=== PATIENT | female | born 1945 | race Caucasian/White ===

== ENCOUNTER 2017-08-31 09:11 | Inpatient (IN) ==
[2017-08-31] MEDS ORDERED: methylPREDNISolone 125 MG/2 ML VIAL IVP ONE (09:19)
[2017-08-31] MEDS ORDERED: Ipratropium/Albuterol Neb 3 ML IH ONE (09:19)
--- NOTE | 2017-08-31 09:44 | Emergency Department Note ---
Disposition Clinical Impression: Acute exacerbation of chronic obstructive airways disease, NSTEMI (non-ST elevated myocardial infarction) Disposition: Admitted As Inpatient Condition: Fair Referrals: London Albright MD [Primary Care Provider] - Forms: ED Satisfaction Letter Time of Disposition: 10:56 SOB HPI - General Chief Complaint: ED Shortness of Breath/Dyspnea Stated Complaint: martha Time Seen by Provider: 08/31/17 09:14 Source: patient, EMS Nursing Notes Reviewed: Yes Vital Signs Reviewed: Yes - History of Present Illness Presents with shortness of breath per EMS and I did see the patient immediately upon arrival and also spoke with the paramedics and the patient does have a history of COPD with multiple exacerbations since December and for the last 2 days she does have intermittent shortness of breath which is worse with exertion does have associated chest tightness when the shortness of breath occurs. The chest tightness is not necessarily related to exertion. No pleuritic aspect or radiation of the chest discomfort. She does have a dry cough and also rhinorrhea but no complaint of fever. She stopped smoking 7 years ago. No pain or swelling of the lower extremities. Social history: No smoking, is here with her sister - Related Data Home Medications Medication Instructions Recorded Confirmed Albuterol Sulfate [Proair Hfa] 2 puff IH Q4H PRN 08/31/17 08/31/17 Budesonide/Formoterol 160/4.5 2 puff IH BIDR 08/31/17 08/31/17 [Symbicort 160/4.5] Calcium Carbonate [Calcium] 600 mg PO BID 08/31/17 08/31/17 Ipratropium/Albuterol Neb [Duoneb] 3 ml IH Q6HR PRN 08/31/17 08/31/17 Montelukast [Singulair] 10 mg PO HS 08/31/17 08/31/17 Multivitamin [One Daily Essential] 1 tab PO DAILY 08/31/17 08/31/17 Tiotropium [place] [Spiriva 2 puff IH DAILY 08/31/17 08/31/17 Respimat] Previous Rx's Medication Instructions Recorded traMADol [Ultram] 50 mg PO Q6H PRN #30 tablet 02/04/16 Allergies Allergy/AdvReac Type Severity Reaction Status Date / Time codeine Allergy Hives Verified 08/31/17 10:12 diphenhydramine AdvReac Itching Verified 08/31/17 10:12 [From Benadryl] hydrocodone AdvReac Itching Verified 08/31/17 10:12 Review of Systems: Constitutional: No fever Vision: No blurred vision ENT: + rhinorrhea Respiratory: + cough Allergic: No allergies : No blood in urine GI: No blood in stool Hematologic: No bruising Dermatologic: No skin rash Musculoskeletal: No pain in the extremities Neuro: No numbness of the extremities Past Medical History - Past Medical History Medical history: Reports: COPD Surgical history: Reports: hysterectomy, orthopedic, other Psychiatric history: Reports: no psych history DIP PAINTER history: Reports: no DIP PAINTER history - Social History Smoking Status: Former smoker Smokeless Tobacco Status: Yes Alcohol use: Reports: none Drug use: Reports: none Physical Exam CONSTITUTIONAL: Well-appearing; well-nourished; A&O X 3, in no apparent distress HEAD: Normocephalic; atraumatic EYES: PERRL, no scleral icterus NOSE: The nose is normal in appearance without rhinorrhea NECK: No JVD or distended neck veins RESP: Normal chest excursion with respiration; breath sounds with bilateral wheezing moderate to severe, symmetric CARD: Regular rhythm, without murmurs, rub or gallop ABD: Non-distended; non-tender, soft, without rigidity, rebound or guarding,no pulsatile mass CHEST: + pain with palpation, normal appearance SKIN: Normal for age and race; warm and dry without diaphoresis ; no apparent lesions EXTREMITIES: Pulses are 2 plus and equal times 4 extremities, no peripheral edema or calf muscle pain - General General appearance: alert, in no apparent distress Course Vital Signs Temperature 98.1 F 08/31/17 09:13 Pulse Rate 98 08/31/17 09:13 Respiratory Rate 20 08/31/17 09:13 Blood Pressure 141/92 08/31/17 09:13 O2 Sat by Pulse Oximetry 93 08/31/17 09:13 Temperature 98.1 F 08/31/17 09:13 Pulse Rate 98 08/31/17 09:13 Respiratory Rate 20 08/31/17 09:13 Blood Pressure 141/92 08/31/17 09:13 O2 Sat by Pulse Oximetry 94 08/31/17 09:13 Oxygen Delivery Oxygen Delivery Nasal Cannula Shortness of Breath/Dyspnea - MDM Narrative Medical decision making narrative: Patient symptoms consistent with COPD exacerbation and she will receive IV Solu- Medrol, DuoNeb, antibiotics, labs and chest x-ray are pending. I do not suspect pulmonary embolism or congestive heart failure 0945 I did review the chest x-ray without acute abnormality. The patient has not recently been in a health care facility. Is also started on antibiotics Rocephin and Zithromax. I did speak with the hospitalist who accepts the patient for admission. Troponin is minimally elevated at 0.04 1056 - Lab Data Result diagrams: 08/31/17 09:31 08/31/17 09:31 Lab Results 08/31/17 08/31/17 08/31/17 Range/Units 09:31 09:31 09:31 WBC 7.4 (4.3-11.1) K/mcL RBC 4.15 (3.82-4.97) M/mcL Hgb 13.2 (11.5-15.4) g/dL Hct 39.2 (35.3-44.9) % MCV 94.5 (83.0-100.0) fL MCH 31.8 (28.0-33.3) pg MCHC 33.7 (31.6-35.5) g/dL RDW 13.7 (11.5-14.5) % Plt Count 258 (140-400) K/mcL MPV 11.1 (9.4-12.4) fL Immature Gran % 0.3 (0-4) % Seg Neutrophils % 49.1 % Lymphocytes % 33.6 % Monocytes % 6.0 % Eosinophils % 10.5 % Basophils % 0.5 % Neutrophils # 3.6 (1.6-8.9) K/mcL Lymphocytes # 2.5 (0.6-4.6) K/mcL Monocytes # 0.4 (0.0-1.3) K/mcL Eosinophils # 0.8 H (0.0-0.6) K/mcL Basophils # 0.0 (0.0-0.2) K/mcL Immature Plt Fraction 5.8 (1.1-6.1) % Sodium 142 (136-145) mEq/L Potassium 4.0 (3.5-4.5) mEq/L Chloride 108 (98-109) mEq/L Carbon Dioxide 24 (19-29) mEq/L BUN 13 (7-20) mg/dL Creatinine 0.94 (0.57-1.11) mg/dL Est GFR ( Amer) > 60 (> 60) Est GFR (Non-Af Amer) 59 L (> 60) BUN/Creatinine Ratio 14 (6-26) Glucose 111 H (70-99) mg/dL Calculated Osmolality 295 (280-300) Calcium 9.4 (8.6-10.8) mg/dL Troponin I 0.04 H* (0-0.03) ng/mL
[2017-08-31 09:48] LABS: Basophils % 0.5 %; Eosinophils # 0.8 K/mcL (0.0-0.6); Eosinophils % 10.5 %; Hematocrit 39.2 % (35.3-44.9); Hemoglobin 13.2 g/dL (11.5-15.4); Immature Granulocytes % 0.3 % (0-4); Immature Platelets 5.8 % (1.1-6.1); Lymphocytes # 2.5 K/mcL (0.6-4.6); Lymphocytes % 33.6 %; Mean Corpuscular HGB Conc 33.7 g/dL (31.6-35.5); Mean Corpuscular Hemoglobin 31.8 pg (28.0-33.3); Mean Corpuscular Volume 94.5 fL (83.0-100.0); Mean Platelet Volume 11.1 fL (9.4-12.4); Monocytes # 0.4 K/mcL (0.0-1.3); Neutrophils # 3.6 K/mcL (1.6-8.9); Platelet Count 258 K/mcL (140-400); Red Blood Count 4.15 M/mcL (3.82-4.97); Red Cell Distribution Width 13.7 % (11.5-14.5); Segmented Neutrophils % 49.1 %
[2017-08-31 10:02] LABS: BUN/Creatinine Ratio 14 (6-26); Blood Urea Nitrogen 13 mg/dL (7-20); Calcium 9.4 mg/dL (8.6-10.8); Carbon Dioxide 24 mEq/L (19-29); Chloride 108 mEq/L (98-109); Glucose 111 mg/dL (70-99); Osmolality,Calculated 295 (280-300); Sodium 142 mEq/L (136-145); eGFR For African Americans > 60 (> 60); eGFR For Non-African Americans 59 (> 60)
[2017-08-31] MEDS ORDERED: Azithromycin 500 MG in D5% in Water 250 ML IVPB ONE (10:55)
[2017-08-31] MEDS ORDERED: Naloxone 0.4 MG/ML INJ IVP PRN (11:35)
[2017-08-31] MEDS ORDERED: Ondansetron 4 MG/2 ML VIAL IVP PRN (11:35)
[2017-08-31] MEDS ORDERED: Acetaminophen 325 MG TABLET PO PRN (11:35)
--- NOTE | 2017-08-31 11:53 | Internal Med History&Physical ---
<AleciapraveenBeto ivey - Last Filed: 08/31/17 12:17> Date of Encounter: 08/31/17 Time of Encounter: 10:30 Assessment and Plan (1) Acute exacerbation of chronic obstructive airways disease Current visit: Yes Status: Acute Acute exacerbation of COPD. Pt. states she has been SOB since December with episodes of bronchitis x4. Pt. states she was placed on Z-packs which did not work. States she was in the shower this morning and couldn't breathe. Was placed on azithromycin and ceftriaxone in ED. Will discontinue azithromycin since pt. failed OP tx x4. Will continue IVPB ceftriaxone 1,000 daily for infection coverage. Pt. received 125 mg methylprednisolone in ED. Will continue steroids with prednisone by mouth 60 mg daily. DuoNebs every 4 scheduled. Supplemental O2 w/titration and SpO2 monitoring. Continuous cardiac telemetry d/ t tachycardia and elevated troponin. Pt. and f/u labs to be monitored. Pt. high risk for respiratory distress and further morbidity based on current sx, hx of failed tx, and risk factors. Inpatient. (2) Dizziness Current visit: Yes Status: Acute Acute dizziness d/t SOB/dyspnea. Falls/safety precautions. PT/OT consults ordered to assess pt. for ambulation needs/safety. (3) Elevated troponin Current visit: Yes Status: Acute Initial troponin of 0.04 on admission most likely stress-related d/t current tachycardia brought on by hypoxia and SOB. Will trend x2. Echocardiogram ordered. Continuous cardiac telemetry. (4) Hyperglycemia Current visit: Yes Status: Acute Acute hyperglycemia w/BG of 111 on admission. Pt. denies previous hx of diabetes. BG checks Q6. A1c in a.m. labs. Will administer low-dose correction sliding scale insulin if necessary. (5) DVT prophylaxis Current visit: Yes Status: Acute Heparin 5,000 units SQ Q8 for DVT prophylaxis. Internal Medicine - H&P: HPI Chief complaint: SOB/Dyspnea/Cough Admitted From: Emergency Dept Plans for Post Hospital Care: Home History of present illness: Ms. Rowland is a 72 year old female with medical hx of COPD presents from the ED with chief complaint of shortness of breath, dyspnea, dizziness, and cough that worsened this morning to the point where she states she couldn't breathe. States she has had difficulty breathing since December with bronchitis 4 without resolve. She states she is a former smoker quitting 7 years ago, but smoked 1 pack per day. Patient denies recent illness, fever, chills, nausea, vomiting, chest pain, palpitations, abdominal pain, diarrhea, constipation, headache, numbness, tingling, changes in vision, unusual bleeding, pre-syncope, or syncope. Past Med Surg Social Fam HX - Past Medical History Source: patient, old records reviewed, obtained from family Medical history: COPD Psychiatric history: no psych history - Past Surgical History Surgical History: hysterectomy (Total), orthopedic, other (Rt. shoulder) - Social History Smoking Status: Former smoker Packs per day: 1 PPD - Reports quitting 7 years ago Smokeless Tobacco Status: Yes Alcohol use: none Drug use: none Current living situation: Home, With Family Activity Level: Independent ambulation Recent Out of Country Travel Within the Last 8 Weeks: No Exposure or Possible Exposure to Illness During Travel: No - Family History Mother Race: Family Member Ethnicity: Non- Living Status: Age at : 72 Cause of : Ovarian cancer Hx Family Cancer: Yes (Ovarian cancer) Father Race: Family Member Ethnicity: Non- Living Status: Age at : 63 Cause of : Lung cancer w/mets Hx Family Cancer: Yes (Lung cancer w/mets) Brother Race: Family Member Ethnicity: Non- Living Status: Age at : 55 Cause of : Lung cancer Hx Family Cancer: Yes (Lung) Hx Family Endocrine Disorder: Yes (DM) Sister Race: Family Member Ethnicity: Non- Living Status: Age at : 50 Cause of : Ovarian cancer Hx Family Cancer: Yes (Ovarian) Internal Medicine - H&P: Meds traMADol [Ultram] 50 mg PO Q6H PRN #30 tablet 02/04/16 [Rx] Albuterol Sulfate [Proair Hfa] 2 puff IH Q4H PRN 08/31/17 [History] Budesonide/Formoterol 160/4.5 [Symbicort 160/4.5] 2 puff IH BIDR 08/31/17 [ History] Calcium Carbonate [Calcium] 600 mg PO BID 08/31/17 [History] Ipratropium/Albuterol Neb [Duoneb] 3 ml IH Q6HR PRN 08/31/17 [History] Montelukast [Singulair] 10 mg PO HS 08/31/17 [History] Multivitamin [One Daily Essential] 1 tab PO DAILY 08/31/17 [History] Tiotropium [place] [Spiriva Respimat] 2 puff IH DAILY 08/31/17 [History] 3 Allergy/AdvReac Type Severity Reaction Status Date / Time codeine Allergy Hives Verified 08/31/17 10:12 diphenhydramine AdvReac Itching Verified 08/31/17 10:12 [From Benadryl] hydrocodone AdvReac Itching Verified 08/31/17 10:12 All Systems PM: A 10-system review of systems was performed and is negative for pertinent findings except as documented above in the HPI. - Constitutional Constitutional: no chills, no fever(s), no night sweats - EENT Eyes: no change in vision, no discharge, no pain, no photophobia Ears: no ear discharge, no ear pain, no tinnitus Nose, mouth and throat: no dysphagia, no nasal discharge, no neck pain, no sore throat - Breasts Breasts: as per HPI - Cardiovascular Cardiovascular ROS IM: as per HPI, dyspnea, dyspnea on exertion, no chest pain, no diaphoresis, no lightheadedness, no palpitations, no syncope - Respiratory Respiratory: as per HPI, cough, dyspnea, dyspnea on exertion, chest congestion, no wheezing, no excessive phlegm production - Gastrointestinal Gastrointestinal: no abdominal pain, no diarrhea, no hematemesis, no hematochezia, no melena, no nausea, no vomiting - Genitourinary Genitourinary: no change in urinary stream, no dysuria, no flank pain, no hematuria Menstruation: as per HPI, post hysterectomy - Musculoskeletal Musculoskeletal ROS IM: no numbness, no tingling - Integumentary Integumentary IM: no rash, no unusual bruising - Neurological Neurological ROS: no confusion, no convulsions, no focal weakness, no numbness, no tingling, no tremor(s) - Psychiatric Psychiatric: as per HPI - Endocrine Endocrine IM: as per HPI - Hematologic/Lymphatic Hematologic/Lymphatic: no easy bruising - Allergic/Immunologic Allergic/Immunologic: as per HPI - Constitutional Vitals: Temp Pulse Resp BP Pulse Ox 98.1 F 76 16 115/73 92 08/31/17 09:13 08/31/17 11:34 08/31/17 11:34 08/31/17 11:34 08/31/17 11:34 General appearance: Present: cooperative, mild distress (Coughing/respiratory distress), A&O X 3, pleasant, answers questions appropriately - Head Head exam: Present: atraumatic, normal inspection, normocephalic - Eye Eye exam: Present: PERRL, conjuntiva pink, sclera anicteric Pupils: Present: PERRL - ENT ENT exam: Present: normal exam, normal external ear exam - Neck Neck exam general surgery: Present: normal inspection, supple, trachea midline. Absent: lymphadenopathy - Respiratory Respiratory exam: Present: accessory muscle use, decreased breath sounds, rhonchi. Absent: rales, wheezes - Cardiovascular Cardiovascular exam: Present: +S1, +S2, tachycardia. Absent: diastolic murmur, gallop, rubs, systolic murmur - GI/Abdominal GI/Abdominal exam: Present: normal bowel sounds, soft, no peritoneal signs. Absent: distended, tenderness - Rectal Rectal exam: Present: deferred - Additional comments: exam deferred. - Extremities Exam Extremities exam: Present: warm, radial pulses palpable and symmetrical. Absent : calf tenderness, cyanotic, pedal edema - Back Exam Back exam: Present: normal inspection - Neurological Exam Neurological exam: Present: CN II-XII intact, oriented X3, no focal deficits. Absent: pronater drift, facial droop, speech deficit - Psychiatric Psychiatric exam: Present: normal affect, normal mood - Skin Skin exam: Present: dry, intact Internal Med - H&P Results - Labs CBC & Chem 7: 08/31/17 09:31 08/31/17 09:31 - EKG Data EKG shows normal: sinus rhythm Rate: tachycardia - EKG Data Prior EKG available for review: no EKG comments: 08/31/17 12:01 EKG dated 08/31/17 shows sinus tachycardia and abnormal rhythm ECG. <Cele Ortiz - Last Filed: 08/31/17 19:13> Date of Encounter: 08/31/17 Internal Medicine - H&P: HPI History of present illness: Ms. Rowland is a 72 year old female All Systems PM: A 10-system review of systems was performed and is negative for pertinent findings except as documented above in the HPI. - Constitutional Vitals: Temp Pulse Resp BP Pulse Ox 98.8 F 78 17 98/65 95 08/31/17 15:09 08/31/17 15:09 08/31/17 15:17 08/31/17 15:09 08/31/17 15:17 Internal Med - H&P Results - Labs CBC & Chem 7: 08/31/17 09:31 08/31/17 09:31 Labs: Cardiac Enzymes 08/31/17 Range/Units 15:27 Troponin I 0.31 H* (0-0.03) ng/mL - Attending Attestation Patient seen and examined, agree with assessment and plan by BRAYAN Godoy. Patient with COPD exacerbation and elevated troponin. Patient complains of chest pressure only when coughing, it completely resolves when she is not coughing. Treating for COPD exacerbation and consulted cardiology for assistance - will give SQ lovenox 1mg/kg BID and check TTE, cardiology will see in AM. Will trend troponins. EKG without ischemic changes.
[2017-08-31] MEDS: traMADol 50 MG TABLET PO PRN ×2 (12:34→21:03)
[2017-08-31] MEDS ORDERED: cefTRIAXone 1,000 MG in Water for inj. (sterile) 10 ML IVP ONE (14:38)
[2017-08-31] MEDS: Ipratropium/Albuterol Neb 3 ML IH SCH ×5 (15:15→23:34)
[2017-08-31] MEDS ORDERED: *HR* Heparin 5,000 UNIT/ML VIAL SQ SCH (16:00)
[2017-08-31] MEDS ORDERED: Nitroglycerin 0.4 MG TAB.SUBL SL PRN (16:59)
[2017-08-31] MEDS ORDERED: Insulin LISPRO 300 UNITS/3 ML VIAL SQ PRN ×2 (17:24)
[2017-08-31] MEDS ORDERED: Dextrose Gel 15 GM PO PRN ×2 (17:24)
[2017-08-31] MEDS ORDERED: *HR* Dextrose 50 % in Water (Syg) 50 ML SYRINGE IVP PRN (17:24)
[2017-08-31] MEDS ORDERED: D5% in Water 1,000 ML IVC PRN (17:24)
[2017-08-31] MEDS: Benzonatate 100 MG CAPSULE PO SCH ×2 (17:41→21:03)
[2017-08-31] MEDS: *HR* Enoxaparin 60 MG/0.6 ML SYRINGE SQ SCH (19:40)
[2017-08-31] MEDS: Budesonide/Formoterol 160/4.5 MDI IH SCH (20:11)
[2017-08-31] MEDS: Insulin LISPRO 300 UNITS/3 ML VIAL SQ SCH (21:45)
[2017-09-01] MEDS: Ipratropium/Albuterol Neb 3 ML IH SCH ×6 (04:45→23:29)
[2017-09-01 05:08] LABS: Basophils % 0.1 %; Eosinophils % 0.1 %; Hematocrit 34.7 % (35.3-44.9); Immature Granulocytes % 0.3 % (0-4); Lymphocytes # 1.5 K/mcL (0.6-4.6); Lymphocytes % 16.5 %; Mean Corpuscular HGB Conc 33.1 g/dL (31.6-35.5); Mean Corpuscular Hemoglobin 31.3 pg (28.0-33.3); Mean Corpuscular Volume 94.3 fL (83.0-100.0); Mean Platelet Volume 11.3 fL (9.4-12.4); Monocytes # 0.5 K/mcL (0.0-1.3); Monocytes % 5.1 %; Platelet Count 234 K/mcL (140-400); Red Blood Count 3.68 M/mcL (3.82-4.97); Red Cell Distribution Width 13.8 % (11.5-14.5); Segmented Neutrophils % 77.9 %
[2017-09-01 05:21] LABS: Hemoglobin 11.5 g/dL (11.5-15.4)
[2017-09-01 05:26] LABS: Hemoglobin A1C 5.4 %
[2017-09-01] MEDS: *HR* Enoxaparin 60 MG/0.6 ML SYRINGE SQ SCH (05:28)
[2017-09-01 05:32] LABS: BUN/Creatinine Ratio 18 (6-26); Blood Urea Nitrogen 19 mg/dL (7-20); Carbon Dioxide 26 mEq/L (19-29); Chloride 107 mEq/L (98-109); Potassium 4.2 mEq/L (3.5-4.5); Sodium 141 mEq/L (136-145); eGFR For African Americans > 60 (> 60)
[2017-09-01 05:33] LABS: Alanine Aminotransferase 12 Units/L (0-55); Albumin 3.2 g/dL (3.5-5.0); Albumin/Globulin Ratio 1.1 (1.1-2.2); Alkaline Phosphatase 60 Units/L (38-126); Aspartate Amino Transferase 16 Units/L (5-34); Bilirubin,Total 0.2 mg/dL (0.2-1.2); Calcium 9.4 mg/dL (8.6-10.8); Chol/HDL Ratio 2.7 (0-4.9); Cholesterol 176 mg/dL (< 200); Globulin 2.9 g/dL (2.4-3.5); Glucose 111 mg/dL (70-99); HDL Cholesterol 66 mg/dL (40-59); LDL Cholesterol,Calculated 93 mg/dL (0-99); Magnesium 2.1 mg/dL (1.6-2.6); Osmolality,Calculated 295 (280-300); Phosphorous 3.9 mg/dL (2.3-4.7); Total Protein 6.1 g/dL (6.0-8.3); Triglycerides 87 mg/dL (< 150); eGFR For Non-African Americans 50 (> 60)
[2017-09-01] MEDS: Benzonatate 100 MG CAPSULE PO SCH ×3 (07:30→19:07)
[2017-09-01] MEDS: traMADol 50 MG TABLET PO PRN ×3 (07:30→23:04)
[2017-09-01] MEDS: cefTRIAXone 1,000 MG in Water for inj. (sterile) 10 ML IVP SCH (07:31)
[2017-09-01] MEDS: Budesonide/Formoterol 160/4.5 MDI IH SCH ×2 (07:39→20:16)
[2017-09-01] MEDS: Insulin LISPRO 300 UNITS/3 ML VIAL SQ SCH ×4 (08:25→21:55)
[2017-09-01] MEDS ORDERED: predniSONE 20 MG TABLET PO SCH (09:00)
--- NOTE | 2017-09-01 09:38 | Cardiology Consult Note ---
<David Murray R - Last Filed: 09/01/17 09:36> Date of Encounter: 09/01/17 Time of Encounter: 09:36 Assessment and Plan (1) Elevated troponin Current Visit: Yes Status: Acute Troponins 0.04, 0.31, 0.26 in setting of COPD exacerbation. Rhonchi and wheezes noted on exam. No ischemic EKG changes. Suspect demand ischemia secondary to COPD exacerbation, nondiagnostic for ACS. Cardiac rehab not warranted. No cardiac hx. Only risk factor for CAD is hx of tobacco abuse. On therapeutic lovenox currently. Recommend echo to evaluate structure and function. If no significant findings, anticipate sign off from cardiac standpoint. (2) Acute exacerbation of chronic obstructive airways disease Current Visit: Yes Status: Acute Management per primary team. Discussion w patient/family: The assessment and plan as outlined above was discussed with the patient and/or family members who expressed understanding and agreement. All questions were answered. Thank you for involving us in the care of your patient. Please call with any questions. I will discuss all the above with Dr. Matias and make changes as necessary. History of Present Illness Consult date: 09/01/17 Requesting physician: Cele Ortiz Consult reason: Elevated troponin Chief complaint: dyspnea History of present illness: Ms. Rowland is a 72 year old female with medical hx of COPD that presented to the ED with chief complaint of dyspnea, dizziness, and cough that worsened yesterday morning to the point that she couldn't breathe and felt like she was smothering. States she has had difficulty breathing since December with bronchitis 4 without complete resolve. She states she is a former smoker quitting 7 years ago, but smoked 1 pack per day. She denies chest krzysztof, no cardiac hx. Troponins 0.04, 0.31, 0.26 and cardiology was consulted for further recommendations. Past Med Surg Social Fam HX - Past Medical History Medical history: COPD Psychiatric history: no psych history - Past Surgical History Surgical History: hysterectomy, orthopedic, other - Social History Smoking Status: Former smoker Packs per day: 1 PPD - Reports quitting 7 years ago Smokeless Tobacco Status: Yes (electronic cigarette) Alcohol use: none Drug use: none - Family History Brother Race: Family Member Ethnicity: Non- Living Status: Age at : 55 Cause of : Lung cancer Hx Family Cancer: Yes (Lung) Hx Family Endocrine Disorder: Yes (DM) Sister Race: Family Member Ethnicity: Non- Living Status: Age at : 50 Cause of : Ovarian cancer Hx Family Cancer: Yes (Ovarian) Mother Race: Family Member Ethnicity: Non- Living Status: Age at : 72 Cause of : Ovarian cancer Hx Family Cancer: Yes (Ovarian cancer) Father Race: Family Member Ethnicity: Non- Living Status: Age at : 63 Cause of : Lung cancer w/mets Hx Family Cancer: Yes (Lung cancer w/mets) Medications and Allergies traMADol [Ultram] 50 mg PO Q6H PRN #30 tablet 02/04/16 [Rx] Albuterol Sulfate [Proair Hfa] 2 puff IH Q4H PRN 08/31/17 [History] Budesonide/Formoterol 160/4.5 [Symbicort 160/4.5] 2 puff IH BIDR 08/31/17 [ History] Calcium Carbonate [Calcium] 600 mg PO BID 08/31/17 [History] Ipratropium/Albuterol Neb [Duoneb] 3 ml IH Q6HR PRN 08/31/17 [History] Montelukast [Singulair] 10 mg PO HS 08/31/17 [History] Multivitamin [One Daily Essential] 1 tab PO DAILY 08/31/17 [History] Tiotropium Max [Spiriva Respimat] 2 puff IH DAILY 08/31/17 [History] 3 Allergy/AdvReac Type Severity Reaction Status Date / Time codeine Allergy Hives Verified 08/31/17 10:12 diphenhydramine AdvReac Itching Verified 08/31/17 10:12 [From Benadryl] hydrocodone AdvReac Itching Verified 08/31/17 10:12 All Systems Review: A 10-system review of systems was performed and is negative for pertinent findings except as documented above in the HPI. - Cardiovascular Cardiovascular: as per HPI, dyspnea at rest, dyspnea on exertion - Respiratory Respiratory: cough, dyspnea, wheezing Physical Examination Vital Signs, Last 4 Hours Temp Pulse Resp BP Pulse Ox 09/01/17 08:01 97.8 F 94 16 107/58 92 09/01/17 07:39 18 92 09/01/17 06:01 97.9 F 72 18 112/61 90 Vital Signs Temp Pulse Resp BP Pulse Ox 09/01/17 08:01 97.8 F 94 16 107/58 92 09/01/17 07:39 18 92 09/01/17 06:01 97.9 F 72 18 112/61 90 09/01/17 04:45 17 94 09/01/17 02:02 98.0 F 90 18 109/61 91 08/31/17 21:21 98.0 F 76 18 92/59 92 08/31/17 20:11 18 94 08/31/17 15:17 17 95 08/31/17 15:09 98.8 F 78 16 98/65 94 08/31/17 12:54 98.1 F 113 18 113/80 92 08/31/17 12:12 16 122/86 08/31/17 11:34 76 16 115/73 92 Intake and Output 08/31/17 09/01/17 09/01/17 23:59 07:59 15:59 Intake Total 320 / 320 120 / 120 480 / 480 Output Total 600 / 600 300 / 300 400 / 400 Balance -280 / -280 -180 / -180 80 / 80 Intake: Oral 320 / 320 120 / 120 480 / 480 Output: Urine 600 / 600 300 / 300 400 / 400 Other: Meal Dinner Breakfast Percent of Meal Consumed 90% 100% # Voids 1 Weight 53.9 kg Blood Glucose* 158 120 Patient Weight 09/01/17 23:59 Weight 53.9 kg General: Conversant, No Apparent Distress HEENT: Atraumatic, Normocephaly, Mucus Membranes Moist Neck: No JVD, Normal carotid pulses Cardiac: Reg Rate and Rhythm, Normal S1 and S2, No Murmur Lungs: Other (rhonchi and wheezes noted bilaterally) Neuro: Alert and responsive, No focal deficits noted Abdomen: Soft, Non-Tender Skin: No rashes noted on visualized skin Musculoskeletal: No Chest Wall Tenderness Extremities: No Clubbing, No Cyanosis, No Edema, Normal Pulses Results 09/01/17 04:20 09/01/17 04:20 Lab Results 08/31/17 08/31/17 09/01/17 15:27 21:36 04:20 WBC 9.0 Hgb 11.5 D Hct 34.7 L Plt Count 234 Sodium Potassium Chloride Carbon Dioxide BUN Creatinine Glucose Calcium Magnesium Total Bilirubin AST ALT Alkaline Phosphatase Troponin I 0.31 H* 0.26 H* 09/01/17 04:20 WBC Hgb Hct Plt Count Sodium 141 Potassium 4.2 Chloride 107 Carbon Dioxide 26 BUN 19 Creatinine 1.08 Glucose 111 H Calcium 9.4 Magnesium 2.1 Total Bilirubin 0.2 AST 16 ALT 12 Alkaline Phosphatase 60 Troponin I Short CBC 09/01/17 08/31/17 Range/Units 04:20 09:31 WBC 9.0 7.4 (4.3-11.1) K/mcL Hgb 11.5 D 13.2 (11.5-15.4) g/dL Hct 34.7 L 39.2 (35.3-44.9) % Plt Count 234 258 (140-400) K/mcL Neutrophils # 7.0 3.6 (1.6-8.9) K/mcL BMP 09/01/17 08/31/17 Range/Units 04:20 09:31 Sodium 141 142 (136-145) mEq/L Potassium 4.2 4.0 (3.5-4.5) mEq/L Chloride 107 108 (98-109) mEq/L Carbon Dioxide 26 24 (19-29) mEq/L BUN 19 13 (7-20) mg/dL Creatinine 1.08 0.94 (0.57-1.11) mg/dL Glucose 111 H 111 H (70-99) mg/dL Calcium 9.4 9.4 (8.6-10.8) mg/dL Cardiac Enzymes 08/31/17 08/31/17 08/31/17 Range/Units 21:36 15:27 09:31 Troponin I 0.26 H* 0.31 H* 0.04 H* (0-0.03) ng/mL Liver Function 09/01/17 Range/Units 04:20 Total Bilirubin 0.2 (0.2-1.2) mg/dL AST 16 (5-34) Units/L ALT 12 (0-55) Units/L Alkaline Phosphatase 60 (38-126) Units/L Albumin 3.2 L (3.5-5.0) g/dL Impressions Chest X-Ray 08/31/17 09:19 IMPRESSION: No active cardiopulmonary disease D/ / Henry Amaro MD / Henry Amaro MD Interpreting Provider: Henry Amaro MD Active Medications Acetaminophen (Tylenol) 650 mg PO Q6HR PRN PRN Reason: Mild Pain (1-3) Stop: 03/02/18 11:36 Albuterol Sulfate (Albuterol Inhaler) 2 puff IH Q4H PRN PRN Reason: dyspnea/cough Stop: 03/02/18 11:34 Albuterol/Ipratropium (Duoneb) 3 ml IH [id number] [facility] Stop: 03/02/18 12:01 Last Admin: 09/01/17 07:39 Dose: 3 ml Benzonatate (Tessalon) 200 mg PO TID [facility] Stop: 03/02/18 17:31 Last Admin: 09/01/17 07:30 Dose: 200 mg Budesonide/Formoterol Fumarate (Symbicort) 2 puff IH BIDR [facility] PRN Reason: Protocol Stop: 03/02/18 22:01 Last Admin: 09/01/17 07:39 Dose: 2 puff Calcium Carbonate (Tums) 500 mg PO BID [facility] Stop: 03/02/18 21:01 Last Admin: 09/01/17 07:30 Dose: 500 mg Dextrose/Water (Dextrose 50% (Syg)) 25 ml IVP AD PRN PRN Reason: Hypoglycemia Stop: 03/02/18 17:25 Enoxaparin Sodium (Lovenox) 50 mg 1 mg/kg (50 mg) SQ Q12HCO [facility] PRN Reason: Protocol Stop: 03/02/18 18:01 Last Admin: 09/01/17 05:28 Dose: 50 mg Glucagon (Glucagen) 1 mg IM ONCE PRN PRN Reason: Hypoglycemia Stop: 03/02/18 17:25 Glucose (Gluctose) 15 gm PO ONCE PRN PRN Reason: Hypoglycemia Stop: 03/02/18 17:25 Glucose (Gluctose) 30 gm PO ONCE PRN PRN Reason: Hypoglycemia Stop: 03/02/18 17:25 Ceftriaxone Sodium 1,000 mg/ (Sterile Water) 10 mls @ 300 mls/hr IVP DAILY [facility] Stop: 03/03/18 09:01 Last Admin: 09/01/17 07:31 Dose: 300 mls/hr Dextrose (Dextrose 5%) 1,000 mls @ 100 mls/hr IVC .Q10H PRN PRN Reason: HYPOGLYCEMIA Stop: 03/02/18 17:25 Insulin Human Lispro (Humalog) 0 units SQ HS [facility] PRN Reason: Protocol Stop: 03/02/18 21:01 Last Admin: 08/31/17 21:45 Dose: Not Given Insulin Human Lispro (Humalog) 0 units SQ TIDAC [facility] PRN Reason: Protocol Stop: 03/03/18 07:31 Last Admin: 09/01/17 08:25 Dose: Not Given Montelukast Sodium (Singulair) 10 mg PO HS [facility] Stop: 03/02/18 21:01 Last Admin: 08/31/17 19:40 Dose: 10 mg Naloxone HCl (Narcan) 0.4 mg IVP Q2MIN PRN PRN Reason: Opioid Reversal Stop: 03/02/18 11:36 Nitroglycerin (Nitroglycerin) 0.4 mg SL Q5MIN PRN PRN Reason: Chest Pain Stop: 03/02/18 17:00 Ondansetron HCl (Zofran) 4 mg IVP Q8HR PRN PRN Reason: Nausea And Vomiting Stop: 03/02/18 11:36 Prednisone (Prednisone) 60 mg PO DAILY [facility] Stop: 03/03/18 09:01 Last Admin: 09/01/17 07:30 Dose: 60 mg Tramadol HCl (Ultram) 50 mg PO Q6H PRN PRN Reason: Moderate Pain (4-6) Stop: 03/02/18 11:34 Last Admin: 09/01/17 07:30 Dose: 50 mg - EKG Interpretation EKG results cardiology: personally reviewed (SR), other (12 hr tele AVG HR 79, SR. No significant pauses or arrhythmias.) Consult Discharge Plan - Plan Referrals: London Albright MD [Primary Care Provider] - <Pam Matias - Last Filed: 09/01/17 11:57> Date of Encounter: 09/01/17 - Attending Attestation I have personally performed a face to face evaluation on this patient. I have reviewed and agree with the care plan with ICT BUSINESS ANALYST: Ms. Rowland presents with elevated troponin in the setting of a COPD exacerbation. EKG does not demonstrate ischemic changes. Patient denies chest pain. Presently on therapeutic Lovenox. Recommended echo for evaluation of structure and function. If findings are unremarkable, anticipate signing off from a cardiac standpoint. Recommend low-dose aspirin for primary prevention. Can consider outpatient stress testing. Assessment and Plan Discussion w patient/family: The assessment and plan as outlined above was discussed with the patient and/or family members who expressed understanding and agreement. All questions were answered. Thank you for involving us in the care of your patient. Please call with any questions. History of Present Illness History of present illness: Ms. Rowland is a 72 year old female All Systems Review: A 10-system review of systems was performed and is negative for pertinent findings except as documented above in the HPI. Physical Examination Vital Signs, Last 4 Hours Temp Pulse Resp BP Pulse Ox 09/01/17 11:34 98.0 F 108 20 106/61 90 09/01/17 11:13 18 90 09/01/17 08:01 97.8 F 94 16 107/58 92 Results 09/01/17 04:20 09/01/17 04:20 Lab Results 08/31/17 08/31/17 09/01/17 15:27 21:36 04:20 WBC 9.0 Hgb 11.5 D Hct 34.7 L Plt Count 234 Sodium Potassium Chloride Carbon Dioxide BUN Creatinine Glucose Calcium Magnesium Total Bilirubin AST ALT Alkaline Phosphatase Troponin I 0.31 H* 0.26 H* 09/01/17 04:20 WBC Hgb Hct Plt Count Sodium 141 Potassium 4.2 Chloride 107 Carbon Dioxide 26 BUN 19 Creatinine 1.08 Glucose 111 H Calcium 9.4 Magnesium 2.1 Total Bilirubin 0.2 AST 16 ALT 12 Alkaline Phosphatase 60 Troponin I
[2017-09-01] MEDS ORDERED: Tiotropium 18 MCG inhalation IH SCH (10:00)
--- NOTE | 2017-09-01 13:31 | Event Note ---
Date of Encounter: 09/01/17 Time of Encounter: 13:30 - Cardiology Event Note Reviewed echo images. Normal LV systolic function with normal wall motion. Consider stopping Lovenox. Recommend low-dose aspirin. Consider outpatient stress testing when clinical status improves. We will sign off at this time. Please call with questions.
--- NOTE | 2017-09-01 14:58 | Internal Med Progress Note ---
Date of Encounter: 09/01/17 Time of Encounter: 14:56 - Assessment and plan (1) Acute exacerbation of chronic obstructive airways disease Current Visit: Yes Status: Acute Assessment and plan: mostly triggered by bronchitis cont empirical abx cont duoneb and o2 try to wean her off the O2 as she tolerates change to high dose IV steroids cont INH Steroids too (2) Elevated troponin Current Visit: Yes Status: Acute Assessment and plan: mostly due to demand ischemia no acute ischemia changes on EKG Troponin started trending down as per Card - no acute wall motion / septal abnormality Recommend to d/c Lovenox cont ASA (3) Acute bronchitis Current Visit: Yes Status: Acute Assessment and plan: acute on chronic bronchitis recurrent bronchiti with chronic cough reviewed CXR - no acute infiltrates will obtain CT of Chest for better eval since she has these recurrent bronchitis cont supportive care and empirical abx now Qualifiers: Qualified Code(s): J20.9 - Acute bronchitis, unspecified (4) DVT prophylaxis Current Visit: Yes Status: Acute Assessment and plan: on lovenox SQ - Subjective Interval history: Ms. Rowland is a 72 year old female with medical hx of COPD that presented to the ED with chief complaint of dyspnea, dizziness, and cough that worsened yesterday morning to the point that she couldn't breathe and felt like she was smothering. States she has had difficulty breathing since December with bronchitis 4 without complete resolve. She happened to have elevated troponin @ 0.31. She denied any CP now. She still has cough, unable to bring any sputum. - Constitutional Vitals: Temp Pulse Resp BP Pulse Ox 98.0 F 108 20 106/61 90 09/01/17 11:34 09/01/17 11:34 09/01/17 11:34 09/01/17 11:34 09/01/17 11:34 General appearance: Present: cooperative, A&O X 3, pleasant, answers questions appropriately - Head Head exam: Present: atraumatic, normal inspection - Respiratory Respiratory exam: Present: decreased breath sounds, wheezes (moderate to severe) . Absent: rales, respiratory distress, rhonchi - Cardiovascular Cardiovascular exam: Present: RRR, +S1, +S2. Absent: systolic murmur - GI/Abdominal GI/Abdominal exam: Present: normal bowel sounds, soft. Absent: rebound, rigid, tenderness - Extremities Exam Extremities exam: Absent: calf tenderness, pedal edema, tenderness - Back Exam Back exam: Absent: CVA tenderness (L), CVA tenderness (R) - Neurological Exam Neurological exam: Present: alert, oriented X3 - Psychiatric Psychiatric exam: Present: anxious Internal Medicine: Result - Labs CBC & Chem 7: 09/01/17 04:20 09/01/17 04:20 Labs: Short CBC 09/01/17 Range/Units 04:20 WBC 9.0 (4.3-11.1) K/mcL Hgb 11.5 D (11.5-15.4) g/dL Hct 34.7 L (35.3-44.9) % Plt Count 234 (140-400) K/mcL Neutrophils # 7.0 (1.6-8.9) K/mcL BMP 09/01/17 04:20 Sodium 141 Potassium 4.2 Chloride 107 Carbon Dioxide 26 BUN 19 Creatinine 1.08 Glucose 111 H Calcium 9.4 Cardiac Enzymes 08/31/17 08/31/17 Range/Units 15:27 21:36 Troponin I 0.31 H* 0.26 H* (0-0.03) ng/mL Liver Function 09/01/17 Range/Units 04:20 Total Bilirubin 0.2 (0.2-1.2) mg/dL AST 16 (5-34) Units/L ALT 12 (0-55) Units/L Alkaline Phosphatase 60 (38-126) Units/L Albumin 3.2 L (3.5-5.0) g/dL - Impressions Impressions Echocardiogram 08/31/17 12:08 Impressions: LVEF 60-65%. Mild left ventricular diastolic dysfunction. Normal right ventricular structure and function. No significant valvular dysfunction. No pulmonary hypertension. Left Ventricular Wall Motion: Rest Echo Findings All wall segments showed normal motion. Findings: Study Quality * Technically adequate exam. ECG Findings * Normal sinus rhythm. Left Ventricle * LVEF 60-65%. * Normal LV chamber size, wall thickness and function. * Mild left ventricular diastolic dysfunction. Right Ventricle * Normal right ventricular structure and function. Left Atrium * Normal left atrial size. Right Atrium * Normal right atrial size. Aortic Valve * No aortic regurgitation. * Trileaflet aortic valve. * Normal aortic valve structure. * No aortic stenosis. Mitral Valve * Normal mitral valve structure. * No mitral stenosis. * No mitral regurgitation. * Mild mitral annular calcification Tricuspid Valve * Tricuspid valve not well visualized. * Trace tricuspid regurgitation. * Estimated RA pressure is 3 mmHg. * Estimated RVSP is 21 mmHg. * No pulmonary hypertension. Pulmonic Valve * Pulmonic valve is not well visualized. * No pulmonic stenosis. * Trace pulmonic regurgitation. Pulmonary Artery * Pulmonary artery not well visualized. Aorta * Normally sized aortic root. Pericardium * There is no pericardial effusion present. Interatrial Septum * No evidence of PFO by color Doppler. IVC * Normal IVC dimensions and inspiratory collapse. Consult Discharge Plan - Plan Referrals: London Albright MD [Primary Care Provider] -
[2017-09-01] MEDS: MethylPREDNISolone 40 MG/ML VIAL IVP SCH ×2 (15:53→23:50)
[2017-09-02] MEDS: Ipratropium/Albuterol Neb 3 ML IH SCH ×6 (03:50→23:45)
[2017-09-02 04:39] LABS: Basophils % 0.1 %; Hematocrit 33.9 % (35.3-44.9); Hemoglobin 11.1 g/dL (11.5-15.4); Immature Granulocytes % 0.6 % (0-4); Lymphocytes # 0.7 K/mcL (0.6-4.6); Lymphocytes % 7.2 %; Mean Corpuscular HGB Conc 32.7 g/dL (31.6-35.5); Mean Corpuscular Hemoglobin 31.3 pg (28.0-33.3); Mean Corpuscular Volume 95.5 fL (83.0-100.0); Mean Platelet Volume 11.1 fL (9.4-12.4); Monocytes # 0.2 K/mcL (0.0-1.3); Monocytes % 2.4 %; Neutrophils # 8.4 K/mcL (1.6-8.9); Platelet Count 224 K/mcL (140-400); Red Blood Count 3.55 M/mcL (3.82-4.97); Red Cell Distribution Width 14.1 % (11.5-14.5); Segmented Neutrophils % 89.7 %
[2017-09-02 05:02] LABS: Alanine Aminotransferase 13 Units/L (0-55); Albumin 3.3 g/dL (3.5-5.0); Albumin/Globulin Ratio 1.2 (1.1-2.2); Alkaline Phosphatase 56 Units/L (38-126); Aspartate Amino Transferase 12 Units/L (5-34); BUN/Creatinine Ratio 19 (6-26); Bilirubin,Total 0.2 mg/dL (0.2-1.2); Blood Urea Nitrogen 18 mg/dL (7-20); Calcium 9.9 mg/dL (8.6-10.8); Carbon Dioxide 27 mEq/L (19-29); Chloride 106 mEq/L (98-109); Globulin 2.7 g/dL (2.4-3.5); Glucose 143 mg/dL (70-99); Osmolality,Calculated 296 (280-300); Potassium 4.5 mEq/L (3.5-4.5); Sodium 141 mEq/L (136-145); eGFR For African Americans > 60 (> 60); eGFR For Non-African Americans 57 (> 60)
[2017-09-02] MEDS: *HR* Enoxaparin 30 MG/0.3 ML SYRINGE SQ SCH (05:27)
[2017-09-02] MEDS: traMADol 50 MG TABLET PO PRN ×3 (07:45→23:45)
[2017-09-02] MEDS: Aspirin Enteric Coated 81 MG Tablet PO SCH (07:46)
[2017-09-02] MEDS: Benzonatate 100 MG CAPSULE PO SCH ×3 (07:46→19:37)
[2017-09-02] MEDS: MethylPREDNISolone 40 MG/ML VIAL IVP SCH ×3 (07:46→23:45)
[2017-09-02] MEDS: cefTRIAXone 1,000 MG in Water for inj. (sterile) 10 ML IVP SCH (07:46)
[2017-09-02] MEDS: Insulin LISPRO 300 UNITS/3 ML VIAL SQ SCH ×4 (07:47→21:34)
[2017-09-02] MEDS: Budesonide/Formoterol 160/4.5 MDI IH SCH ×2 (07:58→19:48)
--- NOTE | 2017-09-02 09:51 | Internal Med Progress Note ---
Date of Encounter: 09/02/17 Time of Encounter: 09:48 - Assessment and plan (1) Acute exacerbation of chronic obstructive airways disease Current Visit: Yes Status: Acute Assessment and plan: mostly triggered by bronchitis cont empirical abx cont duoneb and O2 currently off the O2 start tapering steroids cont INH Steroids too Still has moderate wheezing and worsening cough.. not stable enough to go home yet (2) Elevated troponin Current Visit: Yes Status: Acute Assessment and plan: mostly due to demand ischemia no acute ischemia changes on EKG Troponin started trending down as per Card - no acute wall motion / septal abnormality No anti coag needed cont ASA Not a candidate for B tuyet due to her COPD and fairly low BP (3) Acute bronchitis Current Visit: Yes Status: Acute Assessment and plan: acute on chronic bronchitis recurrent bronchitis with chronic cough reviewed CXR - no acute infiltrates Reviewed CT of Chest - sowed increasing Rt Apical nodule 9 x 8 mm size cont supportive care and empirical abx now Qualifiers: Qualified Code(s): J20.9 - Acute bronchitis, unspecified (4) Nodule of apex of right lung Current Visit: Yes Status: Acute Assessment and plan: Repeat CT showed increasing size of Rt apex nodule [place] 6mm to 9mm in 1 month Will talk to her Family Readiness Support Assistant in AM about possible CT guided biopsy here vs as an out pt vs close f/u with CT of chest again (5) DVT prophylaxis Current Visit: Yes Status: Acute Assessment and plan: on lovenox SQ - Subjective Interval history: Ms. Rowland is a 72 year old female with medical hx of COPD that presented to the ED with chief complaint of dyspnea, dizziness, and cough that worsened yesterday morning to the point that she couldn't breathe and felt like she was smothering. States she has had difficulty breathing since December with bronchitis 4 without complete resolve. She happened to have elevated troponin @ 0.31. She denied any CP now. She still has cough, unable to bring any sputum. - Constitutional Vitals: Temp Pulse Resp BP Pulse Ox 98.0 F 101 16 123/63 90 09/02/17 07:04 09/02/17 07:04 09/02/17 07:04 09/02/17 07:04 09/02/17 07:04 General appearance: Present: cooperative, A&O X 3, pleasant, answers questions appropriately - Head Head exam: Present: atraumatic, normal inspection - Neck Neck exam general surgery: Present: supple - Respiratory Respiratory exam: Present: decreased breath sounds, wheezes (moderate). Absent : rales, respiratory distress, rhonchi - Cardiovascular Cardiovascular exam: Present: RRR, +S1, +S2. Absent: systolic murmur - GI/Abdominal GI/Abdominal exam: Present: normal bowel sounds, soft. Absent: rebound, rigid, tenderness - Extremities Exam Extremities exam: Absent: calf tenderness, pedal edema, tenderness - Back Exam Back exam: Absent: CVA tenderness (L), CVA tenderness (R) - Neurological Exam Neurological exam: Present: alert, oriented X3 - Psychiatric Psychiatric exam: Present: anxious Internal Medicine: Result - Labs CBC & Chem 7: 09/02/17 04:16 09/02/17 04:16 Labs: Short CBC 09/02/17 Range/Units 04:16 WBC 9.4 (4.3-11.1) K/mcL Hgb 11.1 L (11.5-15.4) g/dL Hct 33.9 L (35.3-44.9) % Plt Count 224 (140-400) K/mcL Neutrophils # 8.4 (1.6-8.9) K/mcL BMP 09/02/17 04:16 Sodium 141 Potassium 4.5 Chloride 106 Carbon Dioxide 27 BUN 18 Creatinine 0.97 Glucose 143 H Calcium 9.9 Liver Function 09/02/17 Range/Units 04:16 Total Bilirubin 0.2 (0.2-1.2) mg/dL AST 12 (5-34) Units/L ALT 13 (0-55) Units/L Alkaline Phosphatase 56 (38-126) Units/L Albumin 3.3 L (3.5-5.0) g/dL - Impressions Impressions Echocardiogram 08/31/17 12:08 Impressions: LVEF 60-65%. Mild left ventricular diastolic dysfunction. Normal right ventricular structure and function. No significant valvular dysfunction. No pulmonary hypertension. Left Ventricular Wall Motion: Rest Echo Findings All wall segments showed normal motion. Findings: Study Quality * Technically adequate exam. ECG Findings * Normal sinus rhythm. Left Ventricle * LVEF 60-65%. * Normal LV chamber size, wall thickness and function. * Mild left ventricular diastolic dysfunction. Right Ventricle * Normal right ventricular structure and function. Left Atrium * Normal left atrial size. Right Atrium * Normal right atrial size. Aortic Valve * No aortic regurgitation. * Trileaflet aortic valve. * Normal aortic valve structure. * No aortic stenosis. Mitral Valve * Normal mitral valve structure. * No mitral stenosis. * No mitral regurgitation. * Mild mitral annular calcification Tricuspid Valve * Tricuspid valve not well visualized. * Trace tricuspid regurgitation. * Estimated RA pressure is 3 mmHg. * Estimated RVSP is 21 mmHg. * No pulmonary hypertension. Pulmonic Valve * Pulmonic valve is not well visualized. * No pulmonic stenosis. * Trace pulmonic regurgitation. Pulmonary Artery * Pulmonary artery not well visualized. Aorta * Normally sized aortic root. Pericardium * There is no pericardial effusion present. Interatrial Septum * No evidence of PFO by color Doppler. IVC * Normal IVC dimensions and inspiratory collapse. Chest CT 09/01/17 15:05 IMPRESSION: 1. No acute abnormality. 2. A 9 x 8 mm right apical nodule has not significantly changed over 7 months. Please see guidelines below for further follow-up. 3. Unchanged multinodular thyroid goiter, previously evaluated with ultrasound. RECOMMENDATIONS: Fleischner Society guidelines for follow-up and management of incidentally detected pulmonary nodules: Single Solid Nodule: Nodule size less than 6 mm In a low-risk patient, no routine follow-up. In a high-risk patient, optional CT at 12 months. - Low risk patients include individuals with minimal or absent history of smoking and other known risk factors. - High risk patients include individuals with a history or smoking or known risk factors. Radiology 2017 http://pubs.rsna.org/doi/full/10.1148/radiol.1116584786. D/ / Ceferino Reyes MD / Ceferino Reyes MD Interpreting Provider: Ceferino Reyes MD Consult Discharge Plan - Plan Referrals: London Albright MD [Primary Care Provider] - (web request sent on 09/02/17)
--- NOTE | 2017-09-02 19:27 | Electrocardiograph Report ---
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
--- NOTE | 2017-09-02 19:34 | Electrocardiograph Report ---
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
[2017-09-03 03:03] LABS: Basophils % 0.1 %; Hematocrit 34.4 % (35.3-44.9); Hemoglobin 11.5 g/dL (11.5-15.4); Immature Granulocytes % 1.1 % (0-4); Lymphocytes # 0.9 K/mcL (0.6-4.6); Lymphocytes % 8.5 %; Mean Corpuscular HGB Conc 33.4 g/dL (31.6-35.5); Mean Corpuscular Hemoglobin 31.9 pg (28.0-33.3); Mean Corpuscular Volume 95.6 fL (83.0-100.0); Mean Platelet Volume 11.1 fL (9.4-12.4); Monocytes # 0.3 K/mcL (0.0-1.3); Monocytes % 2.9 %; Neutrophils # 9.5 K/mcL (1.6-8.9); Platelet Count 225 K/mcL (140-400); Segmented Neutrophils % 87.4 %
[2017-09-03 03:20] LABS: Alanine Aminotransferase 14 Units/L (0-55); Albumin 3.3 g/dL (3.5-5.0); Albumin/Globulin Ratio 1.2 (1.1-2.2); Alkaline Phosphatase 57 Units/L (38-126); Aspartate Amino Transferase 12 Units/L (5-34); BUN/Creatinine Ratio 19 (6-26); Bilirubin,Total 0.2 mg/dL (0.2-1.2); Blood Urea Nitrogen 20 mg/dL (7-20); Calcium 9.6 mg/dL (8.6-10.8); Carbon Dioxide 29 mEq/L (19-29); Chloride 105 mEq/L (98-109); Globulin 2.8 g/dL (2.4-3.5); Glucose 137 mg/dL (70-99); Osmolality,Calculated 295 (280-300); Sodium 140 mEq/L (136-145); Total Protein 6.1 g/dL (6.0-8.3); eGFR For African Americans > 60 (> 60); eGFR For Non-African Americans 52 (> 60)
[2017-09-03] MEDS: Ipratropium/Albuterol Neb 3 ML IH SCH ×3 (04:51→11:12)
[2017-09-03] MEDS: *HR* Enoxaparin 30 MG/0.3 ML SYRINGE SQ SCH (05:41)
[2017-09-03] MEDS: Budesonide/Formoterol 160/4.5 MDI IH SCH (07:38)
[2017-09-03] MEDS: Insulin LISPRO 300 UNITS/3 ML VIAL SQ SCH ×2 (08:10→12:33)
[2017-09-03] MEDS ORDERED: Benzonatate 100 MG CAPSULE PO PRN (08:55)
--- NOTE | 2017-09-03 09:36 | Pulmonology Consult Note ---
<Victorino Schneider - Last Filed: 09/03/17 09:59> Date of Encounter: 09/03/17 Time of Encounter: 09:50 History of Present Illness Consult date: 09/03/17 Requesting physician: Bhavya Guajardo Reason for consult: abnormal CXR/CT Chief complaint: SOB History of present illness: Patient is a 72yo female with a PMH of asthma, remote tobacco dependence, and anxiety disorder who presented c/o SOB, non-productive cough and feeling "like I 'm being smothered". Pulmonology was consulted due to increasing size of pulmonary nodule on repeat CT scan since initial diagnosis 7 months ago. Patient reports using her Proair and Spiriva inhalers at home without relief. She reports feeling anxious and tingling sensation in her legs after using Duoneb treatments and minimal improvement in cough with use of Tessalon perles. Patient denies fever, chills, CP, hemoptysis, abd pain, N/V/D, or recent weight loss. Past Med Surg Social Fam HX - Past Medical History Medical history: asthma Psychiatric history: anxiety - Past Surgical History Surgical History: hysterectomy, orthopedic, other Medications and Allergies traMADol [Ultram] 50 mg PO Q6H PRN #30 tablet 02/04/16 [Rx] Albuterol Sulfate [Proair Hfa] 2 puff IH Q4H PRN 08/31/17 [History] Budesonide/Formoterol 160/4.5 [Symbicort 160/4.5] 2 puff IH BIDR 08/31/17 [ History] Calcium Carbonate [Calcium] 600 mg PO BID 08/31/17 [History] Ipratropium/Albuterol Neb [Duoneb] 3 ml IH Q6HR PRN 08/31/17 [History] Montelukast [Singulair] 10 mg PO HS 08/31/17 [History] Multivitamin [One Daily Essential] 1 tab PO DAILY 08/31/17 [History] Tiotropium [place] [Spiriva Respimat] 2 puff IH DAILY 08/31/17 [History] 3 Allergy/AdvReac Type Severity Reaction Status Date / Time codeine Allergy Hives Verified 08/31/17 10:12 diphenhydramine AdvReac Itching Verified 08/31/17 10:12 [From Benadryl] hydrocodone AdvReac Itching Verified 08/31/17 10:12 All Systems: A 10-system review of systems was performed and is negative for pertinent findings except as documented above in the HPI. - Constitutional Constitutional: no anorexia, no chills, no fever(s), no night sweats, no weakness, no weight loss - EENT Nose, mouth and throat: dry mouth, no change in voice, no hoarseness, no sinus pain, no sinus pressure, no sore throat - Cardiovascular Cardiovascular: no chest pain, no palpitations, no pedal edema, no rapid heart rate - Respiratory Respiratory: cough, wheezing, chest congestion, pain with cough, no pain on inspirtation, no excessive phlegm production, no change in phlegm color - Gastrointestinal Gastrointestinal: no abdominal pain, no diarrhea, no loose stools, no nausea, no vomiting - Genitourinary Genitourinary: no hematuria, no urinary frequency - Musculoskeletal Musculoskeletal: myalgias, tingling, no weakness, no arthralgias, no numbness - Neurological Neurological: tingling, no abnormal gait, no confusion, no numbness, no paresthesias, no weakness - Psychiatric Psychiatric: anxiety, no depression - Endocrine Endocrine: no cold intolerance, no palpitations - Allergic/Immunologic Allergic/Immunologic: wheezing Physical Examination Vital Signs: Vital Signs, Last 4 Hours Temp Pulse Resp BP Pulse Ox 09/03/17 07:40 18 98 09/03/17 07:15 97.9 F 83 18 105/55 96 General appearance: no acute distress Eyes: nonicteric ENT: oropharynx moist Neck: supple Effort: normal Inspection: normal Auscultation: bilateral: clear, wheezes Percussion: bilateral: not dull Tactile fremitus: bilateral: normal Cardiovascular: regular rate and rhythm Gastrointestinal: normoactive bowel sounds, soft, non-tender, non-distended Integumentary: normal Extremities: no cyanosis, no edema, no clubbing Musculoskeletal: no deformities, ROM normal normal mental status, non-focal exam affect normal, anxious Results - Laboratory Findings CBC and BMP: 09/03/17 02:33 09/03/17 02:33 Abnormal lab findings: Abnormal lab results RBC 3.60 M/mcL (3.82-4.97) L 09/03/17 02:33 Hct 34.4 % (35.3-44.9) L 09/03/17 02:33 Neutrophils # 9.5 K/mcL (1.6-8.9) H 09/03/17 02:33 Est GFR (Non-Af Amer) 52 (> 60) L 09/03/17 02:33 Glucose 137 mg/dL (70-99) H 09/03/17 02:33 POC Glucose 137 (58-89) H 09/02/17 18:53 Troponin I 0.26 ng/mL (0-0.03) H* 08/31/17 21:36 Albumin 3.3 g/dL (3.5-5.0) L 09/03/17 02:33 HDL Cholesterol 66 mg/dL (40-59) H 09/01/17 04:20 - Diagnostic Findings Chest x-ray: report reviewed, image reviewed CT scan - chest: report reviewed, image reviewed - Clinical Findings Intake & Output: Intake & Output 09/02/17 09/03/17 09/03/17 23:59 07:59 15:59 Intake Total 120 / 120 Output Total 1300 / 1300 700 / 700 300 / 300 Balance -1180 / -1180 -700 / -700 -300 / -300 Weight 54.703 kg Consult Discharge Plan - Plan Referrals: London Albright MD [Primary Care Provider] - (web request sent on 09/02/17) <Marin Calles - Last Filed: 09/03/17 12:36> Date of Encounter: 09/03/17 Assessment and Plan (1) Incidental lung nodule, greater than or equal to 8mm Current Visit: Yes Status: Chronic Reviewed CT images with the interventional radiologist and the lesion has not significantly changed and continue to monitor is recommended. Next images to be done in 6 months. This was discussed with the patient as well and also primary care team. The patient can be discharged from the pulmonary standpoint and follow-up in the clinic in about a month. (2) Asthma-COPD overlap syndrome Current Visit: Yes Status: Acute This patient is being treated for asthma-COPD overlap syndrome as outpatient and she is on appropriate bronchodilators and agree with taper systemic steroid. Patient needs to be compliant with her inhalers. I have explained to the patient treatment plan and answered all her questions. Past Med Surg Social Fam HX - Past Medical History Medical history: COPD Psychiatric history: no psych history - Past Surgical History Surgical History: hysterectomy, orthopedic, other - Social History Smoking Status: Former smoker Packs per day: 1 PPD - Reports quitting 7 years ago Smokeless Tobacco Status: Yes (electronic cigarette) Alcohol use: none Drug use: none - Family History Brother Race: Family Member Ethnicity: Non- Living Status: Age at : 55 Cause of : Lung cancer Hx Family Cancer: Yes (Lung) Hx Family Endocrine Disorder: Yes (DM) Sister Race: Family Member Ethnicity: Non- Living Status: Age at : 50 Cause of : Ovarian cancer Hx Family Cancer: Yes (Ovarian) Mother Race: Family Member Ethnicity: Non- Living Status: Age at : 72 Cause of : Ovarian cancer Hx Family Cancer: Yes (Ovarian cancer) Father Race: Family Member Ethnicity: Non- Living Status: Age at : 63 Cause of : Lung cancer w/mets Hx Family Cancer: Yes (Lung cancer w/mets) Physical Examination Vital Signs: Vital Signs, Last 4 Hours Temp Pulse Resp BP Pulse Ox 09/03/17 07:40 18 98 09/03/17 07:15 97.9 F 83 18 105/55 96 Results - Laboratory Findings CBC and BMP: 09/03/17 02:33 09/03/17 02:33 Abnormal lab findings: Abnormal lab results RBC 3.60 M/mcL (3.82-4.97) L 09/03/17 02:33 Hct 34.4 % (35.3-44.9) L 09/03/17 02:33 Neutrophils # 9.5 K/mcL (1.6-8.9) H 09/03/17 02:33 Est GFR (Non-Af Amer) 52 (> 60) L 09/03/17 02:33 Glucose 137 mg/dL (70-99) H 09/03/17 02:33 POC Glucose 137 (58-89) H 09/02/17 18:53 Troponin I 0.26 ng/mL (0-0.03) H* 08/31/17 21:36 Albumin 3.3 g/dL (3.5-5.0) L 09/03/17 02:33 HDL Cholesterol 66 mg/dL (40-59) H 09/01/17 04:20 - Clinical Findings Intake & Output: Intake & Output 09/02/17 09/03/17 09/03/17 23:59 07:59 15:59 Intake Total 120 / 120 Output Total 1300 / 1300 700 / 700 300 / 300 Balance -1180 / -1180 -700 / -700 -300 / -300 Weight 54.703 kg
[2017-09-03] MEDS: MethylPREDNISolone 40 MG/ML VIAL IVP SCH (09:43)
[2017-09-03] MEDS: Aspirin Enteric Coated 81 MG Tablet PO SCH (09:43)
[2017-09-03] MEDS: cefTRIAXone 1,000 MG in Water for inj. (sterile) 10 ML IVP SCH (09:43)
[2017-09-03] MEDS: traMADol 50 MG TABLET PO PRN (09:44)
[2017-09-03 10:51] VITALS: BP 102/51
--- NOTE | 2017-09-03 14:43 | Discharge Summary ---
Date of Encounter: 09/03/17 Time of Encounter: 13:00 - Discharge Diagnosis (1) Acute exacerbation of chronic obstructive airways disease Priority: Primary Status: Acute (2) Elevated troponin Priority: Primary Status: Acute (3) Acute bronchitis Priority: Primary Status: Acute Qualifiers: Qualified Code(s): J20.9 - Acute bronchitis, unspecified (4) Nodule of apex of right lung Priority: Secondary Status: Acute (5) DVT prophylaxis Priority: Secondary Status: Acute - Discharge Medications Prescriptions: Benzonatate [Tessalon] 100 mg PO TID PRN #20 capsule PRN Reason: Cough Cephalexin [Keflex] 500 mg PO TID #6 capsule Omeprazole [PriLOSEC] 20 mg PO DAILY@0630 #30 capsule. predniSONE [PredniSONE] 40 mg PO DAILY #10 tablet Home Medications: traMADol [Ultram] 50 mg PO Q6H PRN #30 tablet 02/04/16 [Rx] Albuterol Sulfate [Proair Hfa] 2 puff IH Q4H PRN 08/31/17 [History] Budesonide/Formoterol 160/4.5 [Symbicort 160/4.5] 2 puff IH BIDR 08/31/17 [ History] Calcium Carbonate [Calcium] 600 mg PO BID 08/31/17 [History] Ipratropium/Albuterol Neb [Duoneb] 3 ml IH Q6HR PRN 08/31/17 [History] Montelukast [Singulair] 10 mg PO HS 08/31/17 [History] Multivitamin [One Daily Essential] 1 tab PO DAILY 08/31/17 [History] Tiotropium [place] [Spiriva Respimat] 2 puff IH DAILY 08/31/17 [History] Benzonatate [Tessalon] 100 mg PO TID PRN #20 capsule 09/03/17 [Rx] Cephalexin [Keflex] 500 mg PO TID #6 capsule 09/03/17 [Rx] Omeprazole [PriLOSEC] 20 mg PO DAILY@0630 #30 capsule. 09/03/17 [Rx] predniSONE [PredniSONE] 40 mg PO DAILY #10 tablet 09/03/17 [Rx] Allergies/Adverse Reactions: 3 Allergy/AdvReac Type Severity Reaction Status Date / Time codeine Allergy Hives Verified 08/31/17 10:12 diphenhydramine AdvReac Itching Verified 08/31/17 10:12 [From Benadryl] hydrocodone AdvReac Itching Verified 08/31/17 10:12 Procedures/tests Complete & Pending: Procedures Performed prior 72 hours Category Date Time Status CT chest wo con [CT] Routine Cat Scan 09/01/17 15:05 Completed EKG [ECG 12 lead ECG] [ECG] Stat Y 08/31/17 16:59 Completed Date of admission: 08/31/17 11:35 Primary care physician: London Albright MD Consults: 08/31/17 11:46 Consult to Occupational Therapy [CONS] Routine Comment: Evaluate, develop and implement POC Reason for Consult: Patient reports dizziness w/ambulation and can be unsteady on her feet. Please assess for strength, stability, safety, ambulation, and possible assistive needs for postdischarge planning. Consult to Physical Therapy [CONS] Routine Comment: Evaluate, develop and implement POC Reason for Consult: Patient reports dizziness w/ambulation and can be unsteady on her feet. Please assess for strength, stability, safety, ambulation, and possible assistive needs for postdischarge planning. 08/31/17 11:48 Consult to Puzzle Assembler [CONS] Routine Reason for SW Consult: Please assess patient for possible home needs (will. O2 ) for post-discharge planning. 08/31/17 17:25 Consult to Cardiology [CONS] Routine Comment: Consulting Provider: Cardiology Sylvia Reason for Consult: elevated troponin Call Completed: Yes 09/03/17 09:33 Consult to Pulmonology [CONS] Routine Consulting Provider: Pulm [facility] Sleep Sylvia Reason for Consult: Worsening Rt lung nodule Call Completed: Yes - Patient Status Disposition: Home, Self-Care Condition: Good Overall status at discharge: patient is back to baseline - Discharge Instructions Follow Up With: London Albright MD [Primary Care Provider] - (web request sent on 09/02/17) Tramaine Thomas MD [Partnered Physician] - - Diet and Activity Activity: increase activity as tolerated Diet: low salt diet Hospital course: Ms. Rowland is a 72 year old female with medical hx of COPD that presented to the ED with chief complaint of dyspnea, dizziness, and cough that worsened yesterday morning to the point that she couldn't breathe and felt like she was smothering. States she has had difficulty breathing since December with bronchitis 4 without completely resolved. She happened to have elevated troponin @ 0.31. She denied any CP. Pt was admitted in the hospital and placed on night monitor. Her troponin stayed stayed stable @ 0.26, she was evaluated by cardiology, who reviewed the 2 D Echo, no wall motion abnormalities noticed. At this point cardiology did not recommend any further work up. With IV steroids , Duoneb and abx her cough, SOB also seems to be improving slowly. She is finally off the O2 breathing comfortably on RA. She does have chronic Rt apex lung nodule, which seems slightly increased in size from 6mm to 9mm. Consulted Pulmonary who evaluated the pt and did not recommend any further interventions now. They are going to f/u on her as an out pt. So will d.c her home in stable condition today - Time Spent with Patient Total time spent providing and/or coordinating discharge services: - Constitutional Vitals: Temp Pulse Resp BP Pulse Ox 97.9 F 85 18 102/51 97 09/03/17 10:44 09/03/17 10:44 09/03/17 11:14 09/03/17 10:44 09/03/17 11:14 General appearance: Present: cooperative, A&O X 3, pleasant, answers questions appropriately - Head Head exam: Present: atraumatic, normal inspection - Respiratory Respiratory exam: Present: decreased breath sounds, wheezes (mild). Absent: rales, respiratory distress, rhonchi - Cardiovascular Cardiovascular exam: Present: RRR, +S1, +S2. Absent: systolic murmur - GI/Abdominal GI/Abdominal exam: Present: normal bowel sounds, soft. Absent: rebound, rigid, tenderness - Extremities Exam Extremities exam: Absent: calf tenderness, pedal edema, tenderness
[2017-09-04] MEDS ORDERED: *HR* Enoxaparin 40 MG/0.4 ML SYRINGE SQ SCH (06:00)
== END 2017-09-03 15:13 | disposition home or self-care (01) | DRG 191 ==
LOC: EMEROO 09:11 → 2ANU 09:11
PROVIDERS: ADMIT Internal Medicine; ATTEND Family Medicine

== ENCOUNTER 2021-11-18 11:18 | Inpatient (IN) ==
[2021-11-18] MEDS ORDERED: CeFAZolin Syr 2,000MG/20 ML 2,000 MG/20 ML SYRINGE IVPB ONE (11:51)
[2021-11-18] MEDS ORDERED: Ringers Solution, Lactated 1,000 ML IVC SCH (12:00)
[2021-11-18] MEDS ORDERED: Ondansetron 4 MG/2 ML VIAL ONE ×2 (13:43→17:41)
[2021-11-18] MEDS ORDERED: Lidocaine -MPF 2% 2 ML VIAL ONE (13:43)
[2021-11-18] MEDS ORDERED: Lidocaine HCL 4 ML Topical Solution (Laryng-O-Jet Kit Sterile Pak) TP ONE (13:43)
[2021-11-18] MEDS ORDERED: *HR* Rocuronium Bromide 50 MG/5 ML VIAL ONE ×2 (13:43→14:53)
[2021-11-18] MEDS ORDERED: *HR* Propofol 200 MG/20 ML VIAL IVP ONE (13:49)
[2021-11-18] MEDS ORDERED: *HR* FentaNYL (PF) 100 MCG/2 ML VIAL ONE (14:18)
[2021-11-18] MEDS ORDERED: *HR* HYDROMORPHONE 2 MG/ML VIAL ONE (14:55)
[2021-11-18] MEDS ORDERED: EPHEDrine 50 MG/ML VIAL ONE (16:01)
[2021-11-18] MEDS ORDERED: CefOXitin 2,000 MG VIAL ONE (16:21)
[2021-11-18] MEDS ORDERED: Sugammadex Sodium 200 MG/2 ML VIAL IV ONE (16:38)
[2021-11-18] MEDS: *HR* HYDROmorphone PF 0.5 MG/0.5 ML SYRINGE IVP PRN ×2 (17:36→17:46)
[2021-11-18] MEDS ORDERED: Ondansetron 4 MG/2 ML VIAL IVP ONE (17:40)
[2021-11-18] MEDS ORDERED: *HR* OxyCODONE Immed Rel 5 MG TABLET PO PRN (18:23)
[2021-11-18] MEDS ORDERED: Ondansetron ODT 4 MG TAB.RAPDIS SL PRN (18:37)
[2021-11-18] MEDS ORDERED: Naloxone 0.4 MG/ML INJ IVP PRN (18:37)
[2021-11-18 19:42] LABS: Basophils % 0.3 %; Eosinophils % 0.2 %; Hematocrit 33.5 % (35.3-44.9); Hemoglobin 10.8 g/dL (11.5-15.4); Immature Granulocytes % 0.3 % (0-4); Lymphocytes # 0.8 K/mcL (0.6-4.6); Lymphocytes % 8.6 %; Mean Corpuscular HGB Conc 32.2 g/dL (31.6-35.5); Mean Corpuscular Hemoglobin 28.5 pg (28.0-33.3); Mean Corpuscular Volume 88.4 fL (83.0-100.0); Monocytes # 0.5 K/mcL (0.0-1.3); Monocytes % 4.8 %; Neutrophils # 8.3 K/mcL (1.6-8.9); Platelet Count 362 K/mcL (140-400); Red Blood Count 3.79 M/mcL (3.82-4.97); Red Cell Distribution Width 14.8 % (11.5-14.5); Segmented Neutrophils % 85.8 %; White Blood Count 9.6 K/mcL (4.3-11.1)
[2021-11-18] MEDS: *HR* HYDROmorphone PCA *PREMADE* 20 MG/1MG/ML (20mL) PCA VIAL IVC PRN (19:49)
[2021-11-18 20:01] LABS: BUN/Creatinine Ratio 18 (6-26); Blood Urea Nitrogen 16 mg/dL (8-23); Calcium 8.2 mg/dL (8.6-10.3); Carbon Dioxide 25 mEq/L (23-29); Chloride 107 mEq/L (98-107); Glucose 182 mg/dL (70-105); Magnesium 1.7 mg/dL (1.6-2.6); Osmolality,Calculated 286 (280-300); Phosphorous 4.9 mg/dL (2.7-4.5); Potassium 3.6 mEq/L (3.5-5.1); Sodium 135 mEq/L (136-145); eGFR For African Americans > 60 (> 60); eGFR For Non-African Americans > 60 (> 60)
[2021-11-18] MEDS: Acetaminophen IV 1,000 MG/100 ML BAG IVPB SCH (20:10)
[2021-11-18] MEDS: Ringers Solution, Lactated 1,000 ML IVC SCH (20:12)
[2021-11-19] MEDS: Acetaminophen IV 1,000 MG/100 ML BAG IVPB SCH ×5 (01:42→23:25)
[2021-11-19] MEDS: Ringers Solution, Lactated 1,000 ML IVC SCH ×2 (04:34→14:26)
[2021-11-19 06:30] LABS: Basophils % 0.1 %; Hematocrit 31.1 % (35.3-44.9); Hemoglobin 9.6 g/dL (11.5-15.4); Immature Granulocytes % 0.2 % (0-4); Lymphocytes # 0.7 K/mcL (0.6-4.6); Lymphocytes % 6.2 %; Mean Corpuscular HGB Conc 30.9 g/dL (31.6-35.5); Mean Corpuscular Hemoglobin 27.6 pg (28.0-33.3); Mean Corpuscular Volume 89.4 fL (83.0-100.0); Mean Platelet Volume 11.2 fL (9.4-12.4); Monocytes # 0.8 K/mcL (0.0-1.3); Monocytes % 7.2 %; Neutrophils # 9.4 K/mcL (1.6-8.9); Platelet Count 283 K/mcL (140-400); Red Blood Count 3.48 M/mcL (3.82-4.97); Red Cell Distribution Width 15.3 % (11.5-14.5); Segmented Neutrophils % 86.3 %; White Blood Count 10.8 K/mcL (4.3-11.1)
[2021-11-19 06:53] LABS: BUN/Creatinine Ratio 21 (6-26); Blood Urea Nitrogen 22 mg/dL (8-23); Calcium 8.2 mg/dL (8.6-10.3); Carbon Dioxide 25 mEq/L (23-29); Chloride 106 mEq/L (98-107); Glucose 156 mg/dL (70-105); Magnesium 1.7 mg/dL (1.6-2.6); Osmolality,Calculated 285 (280-300); Phosphorous 4.9 mg/dL (2.7-4.5); Potassium 4.1 mEq/L (3.5-5.1); Sodium 134 mEq/L (136-145); eGFR For African Americans > 60 (> 60); eGFR For Non-African Americans 52 (> 60)
[2021-11-19] MEDS: D5% in 0.45% NACL w KCl 20 MEQ/1,000 ML MLS IVC SCH (17:07)
[2021-11-20] MEDS: D5% in 0.45% NACL w KCl 20 MEQ/1,000 ML MLS IVC SCH ×3 (02:32→21:24)
[2021-11-20] MEDS: *HR* Enoxaparin 40 MG/0.4 ML SYRINGE SQ SCH (06:08)
[2021-11-20] MEDS: Acetaminophen IV 1,000 MG/100 ML BAG IVPB SCH ×4 (06:08→20:14)
[2021-11-20] MEDS ORDERED: *HR* OxyCODONE Immed Rel 5 MG TABLET PO PRN (08:37)
[2021-11-21] MEDS: Acetaminophen IV 1,000 MG/100 ML BAG IVPB SCH ×3 (05:21→18:46)
[2021-11-21] MEDS: *HR* Enoxaparin 40 MG/0.4 ML SYRINGE SQ SCH (05:21)
[2021-11-21] MEDS: D5% in 0.45% NACL w KCl 20 MEQ/1,000 ML MLS IVC SCH (06:23)
[2021-11-21] MEDS: Ondansetron ODT 4 MG TAB.RAPDIS SL SCH ×3 (10:46→16:11)
[2021-11-21] MEDS: Metoclopramide 20 MG in 0.9 % Sodium Chloride 50 ML IVPB SCH (10:54)
[2021-11-21] MEDS: Budesonide/Formoterol 80/4.5 1 PUFF INH IH SCH ×2 (11:36→21:17)
[2021-11-21] MEDS: *HR* HYDROmorphone PCA *PREMADE* 20 MG/1MG/ML (20mL) PCA VIAL IVC PRN (18:45)
[2021-11-21] MEDS ORDERED: Morphine Sulfate 2 MG/ML SYRINGE IVP PRN (23:18)
[2021-11-22] MEDS: Acetaminophen IV 1,000 MG/100 ML BAG IVPB SCH ×4 (03:19→18:24)
[2021-11-22] MEDS: Ondansetron ODT 4 MG TAB.RAPDIS SL SCH ×7 (03:21→22:07)
[2021-11-22] MEDS: Metoclopramide 20 MG in 0.9 % Sodium Chloride 50 ML IVPB SCH ×2 (03:52→05:10)
[2021-11-22] MEDS: *HR* Enoxaparin 40 MG/0.4 ML SYRINGE SQ SCH (06:16)
[2021-11-22] MEDS ORDERED: Saliva Stimulant 44.3ml BOTTLE PO PRN (06:51)
[2021-11-22] MEDS ORDERED: Chloraseptic Spray 177 ML BOTTLE MM PRN (06:51)
[2021-11-22] MEDS: Budesonide/Formoterol 80/4.5 1 PUFF INH IH SCH ×2 (08:19→20:05)
[2021-11-22] MEDS ORDERED: Lidocaine -MPF 1% 5 ML AMPUL INFILT ONE (08:44)
[2021-11-22] MEDS: Metoprolol XL (24 HR) Succ 25 MG TAB.ER.24H PO SCH (08:55)
[2021-11-22] MEDS: D5% in 0.45% NACL w KCl 20 MEQ/1,000 ML MLS IVC SCH (09:01)
[2021-11-22] MEDS ORDERED: *HR* HYDROmorphone (PF) 1 MG/ML SYRINGE IVP PRN (09:23)
[2021-11-22 10:17] LABS: Hematocrit 25.2 % (35.3-44.9)
[2021-11-22 10:36] LABS: Albumin 3.1 g/dL (3.5-5.7); BUN/Creatinine Ratio 14 (6-26); Blood Urea Nitrogen 10 mg/dL (8-23); Calcium 8.7 mg/dL (8.6-10.3); Carbon Dioxide 29 mEq/L (23-29); Chloride 104 mEq/L (98-107); Chol/HDL Ratio 2.2 (0-4.9); Glucose 136 mg/dL (70-105); Magnesium 1.7 mg/dL (1.6-2.6); Osmolality,Calculated 291 (280-300); Phosphorous 2.6 mg/dL (2.7-4.5); Potassium 3.4 mEq/L (3.5-5.1); Sodium 140 mEq/L (136-145); eGFR For African Americans > 60 (> 60); eGFR For Non-African Americans > 60 (> 60)
[2021-11-22] MEDS ORDERED: D10% in Water 500 ML IVC PRN (11:27)
[2021-11-22] MEDS ORDERED: Dextrose Gel 15 GM/37.5 ML TUBE PO PRN ×2 (13:13)
[2021-11-22] MEDS ORDERED: *HR* Dextrose 50 % in Water (Syg) 50 ML SYRINGE IVP PRN (13:13)
[2021-11-22] MEDS ORDERED: D5% in Water 1,000 ML IVC PRN (13:13)
[2021-11-22] MEDS ORDERED: Potassium Phosphate 44 MEQ in 0.9 % Sodium Chloride 250 ML IVPB ONE (13:33)
[2021-11-22] MEDS: Orphenadrine 60 MG/2 ML VIAL IVP PRN (14:26)
[2021-11-22] MEDS ORDERED: Clinimix E 5%-15% SOLUTION 2,000 ML with MVI, adult with vitamin K 10 ML IVC SCH (17:00)
[2021-11-22] MEDS: Insulin LISPRO 300 UNITS/3 ML VIAL SUBQ SCH ×2 (17:33→22:08)
[2021-11-22] MEDS: Fat Emulsion 250 ML IVPB SCH (19:01)
[2021-11-22] MEDS: *HR* OxyCODONE Immed Rel 5 MG TABLET PO PRN (22:01)
[2021-11-23] MEDS: Insulin LISPRO 300 UNITS/3 ML VIAL SUBQ SCH ×6 (00:42→20:00)
[2021-11-23] MEDS: Ondansetron ODT 4 MG TAB.RAPDIS SL SCH ×3 (00:47→09:06)
[2021-11-23] MEDS: Acetaminophen IV 1,000 MG/100 ML BAG IVPB SCH ×4 (02:35→17:23)
[2021-11-23] MEDS: *HR* OxyCODONE Immed Rel 5 MG TABLET PO PRN (03:34)
[2021-11-23] MEDS: *HR* Enoxaparin 40 MG/0.4 ML SYRINGE SQ SCH (06:33)
[2021-11-23 07:02] LABS: Alanine Aminotransferase 10 Units/L (7-52); Albumin 2.8 g/dL (3.5-5.7); Albumin/Globulin Ratio 1.4 (1.1-2.2); Alkaline Phosphatase 78 Units/L (34-104); Aspartate Amino Transferase 11 Units/L (13-39); BUN/Creatinine Ratio 22 (6-26); Bilirubin,Total 0.3 mg/dL (0.3-1.0); Blood Urea Nitrogen 15 mg/dL (8-23); Calcium 8.4 mg/dL (8.6-10.3); Carbon Dioxide 31 mEq/L (23-29); Chloride 102 mEq/L (98-107); Glucose 142 mg/dL (70-105); Magnesium 2.1 mg/dL (1.6-2.6); Osmolality,Calculated 291 (280-300); Phosphorous 4.9 mg/dL (2.7-4.5); Potassium 3.5 mEq/L (3.5-5.1); Sodium 139 mEq/L (136-145); Total Protein 4.8 g/dL (6.4-8.9); eGFR For African Americans > 60 (> 60); eGFR For Non-African Americans > 60 (> 60)
[2021-11-23] MEDS: Budesonide/Formoterol 80/4.5 1 PUFF INH IH SCH ×2 (07:41→20:31)
[2021-11-23] MEDS ORDERED: Methylnaltrexone 12 MG/0.6 ML SYRINGE SQ ONE (08:58)
[2021-11-23] MEDS: Metoprolol XL (24 HR) Succ 25 MG TAB.ER.24H PO SCH (09:06)
[2021-11-23] MEDS ORDERED: Ondansetron 4 MG/2 ML VIAL IVP PRN (10:20)
[2021-11-23] MEDS ORDERED: *HR* Metoprolol 5 MG/5 ML VIAL IVP PRN (14:44)
[2021-11-23] MEDS ORDERED: D5% in 0.45% NACL w KCl 20 MEQ/1,000 ML MLS IVC SCH (15:43)
[2021-11-23] MEDS ORDERED: Clinimix E 5%-15% SOLUTION 2,000 ML with MVI, adult with vitamin K 10 ML IVC SCH (17:00)
[2021-11-23] MEDS: Fat Emulsion 250 ML IVPB SCH (17:34)
[2021-11-24] MEDS: Acetaminophen IV 1,000 MG/100 ML BAG IVPB SCH ×4 (00:11→18:03)
[2021-11-24] MEDS: Insulin LISPRO 300 UNITS/3 ML VIAL SUBQ SCH ×6 (01:22→20:05)
[2021-11-24 03:03] LABS: Alanine Aminotransferase 9 Units/L (7-52); Albumin 2.7 g/dL (3.5-5.7); Albumin/Globulin Ratio 1.3 (1.1-2.2); Alkaline Phosphatase 69 Units/L (34-104); Aspartate Amino Transferase 9 Units/L (13-39); BUN/Creatinine Ratio 24 (6-26); Bilirubin,Total 0.2 mg/dL (0.3-1.0); Blood Urea Nitrogen 15 mg/dL (8-23); Calcium 7.9 mg/dL (8.6-10.3); Carbon Dioxide 32 mEq/L (23-29); Chloride 100 mEq/L (98-107); Globulin 2.1 g/dL (2.4-3.5); Glucose 149 mg/dL (70-105); Osmolality,Calculated 290 (280-300); Phosphorous 4.2 mg/dL (2.7-4.5); Potassium 3.5 mEq/L (3.5-5.1); Sodium 138 mEq/L (136-145); Total Protein 4.8 g/dL (6.4-8.9); eGFR For African Americans > 60 (> 60); eGFR For Non-African Americans > 60 (> 60)
[2021-11-24] MEDS: Orphenadrine 60 MG/2 ML VIAL IVP PRN (04:35)
[2021-11-24] MEDS: Budesonide/Formoterol 80/4.5 1 PUFF INH IH SCH ×2 (07:29→20:18)
[2021-11-24] MEDS: *HR* Enoxaparin 40 MG/0.4 ML SYRINGE SQ SCH (09:29)
[2021-11-24] MEDS ORDERED: Clinimix E 5%-15% SOLUTION 2,000 ML with MVI, adult with vitamin K 10 ML IVC SCH (17:00)
[2021-11-24] MEDS: Fat Emulsion 250 ML IVPB SCH (17:24)
[2021-11-25] MEDS: Acetaminophen IV 1,000 MG/100 ML BAG IVPB SCH ×5 (00:01→23:22)
[2021-11-25] MEDS: Insulin LISPRO 300 UNITS/3 ML VIAL SUBQ SCH ×5 (00:10→16:18)
[2021-11-25] MEDS: *HR* Enoxaparin 40 MG/0.4 ML SYRINGE SQ SCH (05:46)
[2021-11-25 06:39] LABS: Alanine Aminotransferase 8 Units/L (7-52); Albumin 2.9 g/dL (3.5-5.7); Albumin/Globulin Ratio 1.3 (1.1-2.2); Alkaline Phosphatase 75 Units/L (34-104); Aspartate Amino Transferase 9 Units/L (13-39); BUN/Creatinine Ratio 25 (6-26); Bilirubin,Total 0.2 mg/dL (0.3-1.0); Blood Urea Nitrogen 15 mg/dL (8-23); Calcium 8.2 mg/dL (8.6-10.3); Carbon Dioxide 32 mEq/L (23-29); Chloride 100 mEq/L (98-107); Globulin 2.3 g/dL (2.4-3.5); Glucose 105 mg/dL (70-105); Osmolality,Calculated 283 (280-300); Phosphorous 4.1 mg/dL (2.7-4.5); Potassium 3.6 mEq/L (3.5-5.1); Sodium 136 mEq/L (136-145); Total Protein 5.2 g/dL (6.4-8.9); eGFR For African Americans > 60 (> 60); eGFR For Non-African Americans > 60 (> 60)
[2021-11-25] MEDS: Metoprolol XL (24 HR) Succ 25 MG TAB.ER.24H PO SCH (08:25)
[2021-11-25] MEDS: Budesonide/Formoterol 80/4.5 1 PUFF INH IH SCH ×2 (08:31→20:16)
[2021-11-25] MEDS: Fat Emulsion 250 ML IVPB SCH (16:50)
[2021-11-25] MEDS ORDERED: Clinimix E 5%-15% SOLUTION 2,000 ML with MVI, adult with vitamin K 10 ML IVC SCH (17:00)
[2021-11-25] MEDS ORDERED: Furosemide 20 MG/2 ML VIAL IVP ONE (17:40)
[2021-11-26] MEDS: *HR* Enoxaparin 40 MG/0.4 ML SYRINGE SQ SCH (06:13)
[2021-11-26] MEDS: Acetaminophen IV 1,000 MG/100 ML BAG IVPB SCH (06:13)
[2021-11-26 06:51] LABS: Alanine Aminotransferase 8 Units/L (7-52); Albumin 2.9 g/dL (3.5-5.7); Albumin/Globulin Ratio 1.3 (1.1-2.2); Alkaline Phosphatase 79 Units/L (34-104); Aspartate Amino Transferase 9 Units/L (13-39); BUN/Creatinine Ratio 25 (6-26); Bilirubin,Total 0.3 mg/dL (0.3-1.0); Blood Urea Nitrogen 15 mg/dL (8-23); Calcium 8.2 mg/dL (8.6-10.3); Carbon Dioxide 30 mEq/L (23-29); Chloride 99 mEq/L (98-107); Globulin 2.2 g/dL (2.4-3.5); Glucose 98 mg/dL (70-105); Magnesium 1.8 mg/dL (1.6-2.6); Osmolality,Calculated 281 (280-300); Potassium 3.6 mEq/L (3.5-5.1); Sodium 135 mEq/L (136-145); Total Protein 5.1 g/dL (6.4-8.9); eGFR For African Americans > 60 (> 60); eGFR For Non-African Americans > 60 (> 60)
[2021-11-26] MEDS: Budesonide/Formoterol 80/4.5 1 PUFF INH IH SCH ×2 (08:09→20:39)
[2021-11-26] MEDS: Metoprolol XL (24 HR) Succ 25 MG TAB.ER.24H PO SCH (08:39)
[2021-11-26] MEDS: *HR* OxyCODONE Immed Rel 5 MG TABLET PO PRN ×2 (11:28→18:40)
[2021-11-26] MEDS: Metoclopramide 10 MG/2 ML VIAL IVP SCH ×2 (14:05→18:40)
[2021-11-26 14:21] LABS: Basophils % 0.3 %; Eosinophils # 0.6 K/mcL (0.0-0.6); Eosinophils % 5.4 %; Hematocrit 22.4 % (35.3-44.9); Immature Granulocytes % 1.6 % (0-4); Lymphocytes # 1.3 K/mcL (0.6-4.6); Lymphocytes % 12.9 %; Mean Corpuscular HGB Conc 31.3 g/dL (31.6-35.5); Mean Corpuscular Hemoglobin 27.7 pg (28.0-33.3); Mean Corpuscular Volume 88.5 fL (83.0-100.0); Mean Platelet Volume 9.9 fL (9.4-12.4); Monocytes # 0.7 K/mcL (0.0-1.3); Monocytes % 6.5 %; Neutrophils # 7.6 K/mcL (1.6-8.9); Nucleated Red Blood Cells 0.2 /100 WBC (0); Platelet Count 364 K/mcL (140-400); Red Blood Count 2.53 M/mcL (3.82-4.97); Red Cell Distribution Width 15.2 % (11.5-14.5); Segmented Neutrophils % 73.3 %; White Blood Count 10.3 K/mcL (4.3-11.1)
[2021-11-26] MEDS ORDERED: Clinimix E 5%-15% SOLUTION 2,000 ML with MVI, adult with vitamin K 10 ML IVC SCH (17:00)
[2021-11-27] MEDS: Metoclopramide 10 MG/2 ML VIAL IVP SCH ×3 (00:02→12:53)
[2021-11-27] MEDS: *HR* OxyCODONE Immed Rel 5 MG TABLET PO PRN ×3 (00:03→12:54)
[2021-11-27] MEDS: *HR* Enoxaparin 40 MG/0.4 ML SYRINGE SQ SCH (06:52)
[2021-11-27] MEDS ORDERED: Metoprolol XL (24 HR) Succ 50 MG TAB.ER.24H PO SCH (09:00)
[2021-11-27] MEDS: Budesonide/Formoterol 80/4.5 1 PUFF INH IH SCH (09:41)
[2021-11-27 10:34] LABS: Basophils % 0.3 %; Eosinophils # 0.4 K/mcL (0.0-0.6); Eosinophils % 3.8 %; Hematocrit 22.2 % (35.3-44.9); Immature Granulocytes % 0.7 % (0-4); Lymphocytes # 1.2 K/mcL (0.6-4.6); Lymphocytes % 11.7 %; Mean Corpuscular HGB Conc 31.5 g/dL (31.6-35.5); Mean Corpuscular Hemoglobin 27.7 pg (28.0-33.3); Mean Corpuscular Volume 87.7 fL (83.0-100.0); Mean Platelet Volume 9.8 fL (9.4-12.4); Monocytes # 0.8 K/mcL (0.0-1.3); Monocytes % 7.8 %; Neutrophils # 7.5 K/mcL (1.6-8.9); Nucleated Red Blood Cells 0.2 /100 WBC (0); Platelet Count 415 K/mcL (140-400); Red Blood Count 2.53 M/mcL (3.82-4.97); Segmented Neutrophils % 75.7 %; White Blood Count 9.9 K/mcL (4.3-11.1)
[2021-11-27 10:54] LABS: Alanine Aminotransferase 8 Units/L (7-52); Albumin 2.8 g/dL (3.5-5.7); Albumin/Globulin Ratio 1.1 (1.1-2.2); Alkaline Phosphatase 74 Units/L (34-104); Aspartate Amino Transferase 10 Units/L (13-39); BUN/Creatinine Ratio 17 (6-26); Bilirubin,Total 0.3 mg/dL (0.3-1.0); Blood Urea Nitrogen 11 mg/dL (8-23); Calcium 8.2 mg/dL (8.6-10.3); Carbon Dioxide 29 mEq/L (23-29); Chloride 99 mEq/L (98-107); Globulin 2.5 g/dL (2.4-3.5); Glucose 126 mg/dL (70-105); Magnesium 1.9 mg/dL (1.6-2.6); Osmolality,Calculated 283 (280-300); Phosphorous 3.6 mg/dL (2.7-4.5); Potassium 3.4 mEq/L (3.5-5.1); Sodium 136 mEq/L (136-145); Total Protein 5.3 g/dL (6.4-8.9); eGFR For African Americans > 60 (> 60); eGFR For Non-African Americans > 60 (> 60)
[2021-11-27 12:36] VITALS: BP 168/70; PULSE 92; TEMP 98.3; O2SAT 94
[2021-11-27] MEDS ORDERED: Clinimix E 5%-15% SOLUTION 2,000 ML with MVI, adult with vitamin K 10 ML IVC SCH (17:00)
== END 2021-11-27 14:43 | disposition home or self-care (01) | DRG 330 ==
LOC: SAMDAY 11:18 → SUATTDRO 18:32 → 3ANU 18:32
PROVIDERS: ADMIT Surgery; ATTEND Internal Medicine